=== PATIENT | male | born 1965 | race Caucasian/White ===

== ENCOUNTER → 2025-04-03 08:15 | Outpatient (CLI) | payer OTHER ==
[~2025-04-03 08:15] MED LIST: RESTORIL15 M1; SEROQUEL25 MG; XANAX XR2 MG
[2025-04-03 09:38] LABS: CHOL HDL RATIO 5.4 (0-5.0); GLUCOSE FASTING 114.0 mg/dL (65-100); HDL 27.0 mg/dl (40-60); LDL 64.0 mg/dl (0-130); VLDL 55.0 (0-39)
== END | disposition home or self-care (01) ==
LOC: LAB 08:15
DX: E11.65 Type 2 diabetes mellitus with hyperglycemia (principal); E78.2 Mixed hyperlipidemia